=== PATIENT | male | born 1950 | race Caucasian/White ===

== ENCOUNTER 2016-12-07 09:05 | Emergency (ER) | payer MEDICARE ==
[~2016-12-07] VITALS: Ht 182.9 cm; Wt 86.2 kg
== END 2016-12-07 12:32 | disposition home or self-care (01) ==
LOC: ED 09:05
DX: F10.129 Alcohol abuse with intoxication, unspecified (principal); E86.0 Dehydration; I10 Essential (primary) hypertension; E78.00 Pure hypercholesterolemia, unspecified; F17.200 Nicotine dependence, unspecified, uncomplicated; Z91.030 Bee allergy status
CPT/HCPCS: 80053; 85025; 96361; 96374; 99283; G0480; J2405; J7030